=== PATIENT | male | born 1985 | race Caucasian/White ===

== ENCOUNTER 2017-05-22 04:46 | Emergency (ER) | payer SELFPAY ==
--- NOTE | 2017-05-22 05:02 | NUR ---
Patient states "I do not want to go into the ER unless my insurance pays for it." Patient checked his insurance on his cell phone, he noted a copay was present. He decided not to be triaged or seen by an MD at this time. Patient ambulated from ER with stable gait.
== END 2017-05-22 05:05 | disposition left against medical advice (07) ==
LOC: ER 04:52
DX: Z53.21 Procedure and treatment not carried out due to patient leaving prior to being seen by health care provider (principal)